=== PATIENT | female | born 1985 | race African-American/Black ===

== ENCOUNTER 2016-07-01 12:35 | Emergency (ER) | payer OTHER ==
[~2016-07-01] VITALS: Ht 165.1 cm; Wt 63.5 kg
[~2016-07-01 12:35] MED LIST: CYCLOBENZAPRINE10 MG ORAL; FERROUS SULFAT325 MG ORAL; IBUPROFEN400 MG ORAL; NORCO 5-325 TA1 EACH ORAL; PERIDEX 0.12% O16 OZ ORAL
--- NOTE | 2016-07-01 13:09 | Emergency Room Report ---
History of Present Illness General Chief Complaint: Back Pain-No Injury Source: Patient Present Illness HPI The pt is a 31 yo F with a hx of scoliosis presenting with L sided back pain which began 2 days prior. The patient denies any known reason for the pain. Pain is described as an 8/10 sharp intermittent sensation to the L lateral abdomen and does not radiate. No known provoking factors. Pt denies N, V, F, dysuria, hematuria, Allergies: Coded Allergies: KETOROLAC (Verified Allergy, Unknown, 09/14/15) Patient History Past Medical History: see triage record Pertinent Family History: none Last Menstrual Period: 4 weeks ago Now: No Reviewed Nursing Documentation: PMH: Agreed, PSxH: Agreed Nursing Documentation-PMH Past Medical History: No History, Except For Hx Hypertension: No - scoliosis Review of Systems All Other Systems: negative except mentioned in HPI Physical Exam Vital Signs Date Time Temp Pulse Resp B/P Pulse Ox O2 Delivery O2 Flow Rate FiO2 07/01/16 12:49 98.2 90 14 102/65 99 Sp02 EP Interpretation: reviewed, normal General Appearance: no apparent distress, alert, GCS 15, non-toxic Head: normocephalic, atraumatic Eyes: bilateral eye PERRL, bilateral eye normal inspection ENT: hearing grossly normal, normal pharynx, no angioedema, normal voice Respiratory: chest non-tender, lungs clear, normal breath sounds, speaking full sentences Cardiovascular #1: regular rate, rhythm, no edema Gastrointestinal: normal bowel sounds, soft, non-distended, no guarding, no rebound, tenderness - L lateral torso Rectal: deferred Genitourinary: normal inspection, CVA tenderness (L) Musculoskeletal: back normal, gait/station normal, normal range of motion, tender - TTP over L lateral torso Neurologic: alert, oriented x3, responsive, motor strength/tone normal, sensory intact, speech normal Psychiatric: judgement/insight normal, memory normal, mood/affect normal, no suicidal/homicidal ideation Skin: normal color, no rash, warm/dry, well hydrated Lymphatic: no adenopathy Medical Decision Making PA Attestation Dr. Farah is my supervising physician. Patient management was discussed with my supervising physician Diagnostic Impression: Primary Impression: Muscle strain Additional Impression: Iron deficiency anemia ER Course The patient is a 31-year-old female presenting with left-sided sharp, intermittent abdominal and back pain Differential diagnoses considered include but not limited to muscle strain, renal lithiasis, UTI, pyelonephritis PE: Vitals WNL. NAD. Abdomen: Normal appearance. Non distended. No ecchymosis. Normal BS. No McBurney point tenderness. No guarding. + LUQ/L lateral torso TTP. + L sided CVA tenderness Labs: CBC shows microcytic anemia. The patient has a Hx of Fe deficiency anemia and does not take medications for it. No leukocytosis CMP unremarkable. UA unremarkable. Neg preg Abd US: unremarkable. The patient will be treated for muscular strain with robaxin and tylenol. Pt will also be treated for iron deficiency anemia. ER precautions given. Laboratory Tests Test 07/01/16 13:20 White Blood Count 4.6 K/UL (4.8-10.8) L Red Blood Count 4.16 M/UL (4.20-5.40) L Hemoglobin 9.0 G/DL (12.0-16.0) L Hematocrit 29.8 % (37.0-47.0) L Mean Corpuscular Volume 72 FL (80-99) L Mean Corpuscular Hemoglobin 21.6 PG (27.0-31.0) L Mean Corpuscular Hemoglobin Concent 30.1 G/DL (32.0-36.0) L Red Cell Distribution Width 15.3 % (11.6-14.8) H Platelet Count 309 K/UL (150-450) Mean Platelet Volume 5.1 FL (6.5-10.1) L Neutrophils (%) (Auto) 50.7 % (45.0-75.0) Lymphocytes (%) (Auto) 32.3 % (20.0-45.0) Monocytes (%) (Auto) 6.9 % (1.0-10.0) Eosinophils (%) (Auto) 9.2 % (0.0-3.0) H Basophils (%) (Auto) 0.9 % (0.0-2.0) Urine Color Yellow Urine Appearance Clear Urine pH 6 (4.5-8.0) Urine Specific [place] 1.020 (1.005-1.035) Urine Protein 1+ (NEGATIVE) H Urine Glucose (UA) Negative (NEGATIVE) Urine Ketones Negative (NEGATIVE) Urine Occult Blood 2+ (NEGATIVE) H Urine Nitrite Negative (NEGATIVE) Urine Bilirubin Negative (NEGATIVE) Urine Urobilinogen Normal MG/DL (0.0-1.0) Urine Leukocyte Esterase Negative (NEGATIVE) Urine RBC 2-4 /HPF (0 - 2) H Urine WBC 0-2 /HPF (0 - 2) Urine Squamous Epithelial Cells Few /LPF (NONE/OCC) Urine Bacteria Few /HPF (NONE) Urine Mucus Moderate /LPF (NONE/OCC) H Urine HCG, Qualitative Negative Sodium Level 138 mEQ/L (135-145) Potassium Level 3.5 mEQ/L (3.4-4.9) Chloride Level 99 mEQ/L (98-107) Carbon Dioxide Level 24 mEQ/L (20-30) Anion Gap 15 (5-15) Blood Urea Nitrogen 10 mg/dL (7-23) Creatinine 0.6 mg/dL (0.5-0.9) Estimate Glomerular Filtration Rate > 60 mL/min (>60) Glucose Level 76 mg/dL (74-106) Calcium Level 8.7 mg/dL (8.6-10.2) Total Bilirubin 0.3 mg/dL (0.0-1.2) Aspartate Amino Transferase (AST) 16 U/L (5-40) Alanine Aminotransferase (ALT) 9 U/L (3-33) Alkaline Phosphatase 42 U/L (35-104) Total Protein 7.1 g/dL (6.6-8.7) Albumin 4.2 g/dL (3.5-5.2) Globulin 2.9 g/dL Albumin/Globulin Ratio 1.4 (1.0-2.7) Lab Results Impression CBC shows microcytic anemia. No leukocytosis CMP unremarkable. UA unremarkable. Neg preg CT/MRI/US Diagnostic Results CT/MRI/US Diagnostic Results : Imaging Test Ordered: Abd US Impression Unremarkable Last Vital Signs Date Time Temp Pulse Resp B/P Pulse Ox O2 Delivery O2 Flow Rate FiO2 07/01/16 12:49 98.2 90 14 102/65 99 Status: improved Disposition: HOME, SELF-CARE Condition: Improved Scripts Docusate Sodium* (COLACE*) 100 Mg Capsule 100 MG ORAL TWICE A DAY, #30 CAP Prov: TERZIAN,DARWIN P.A. 07/01/16 Ferrous Sulfate (FEROSUL) 325 Mg Tablet 325 MG PO DAILY, #30 TAB Prov: TERZIAN,DARWIN P.ASusan 07/01/16 Loratadine/Pseudoephedrine (CLARITIN-D 24 HOUR TABLET) 1 Each Tab.er.24h 1 TAB PO DAILY, #14 TAB Prov: DARWIN BOYCE P.A. 07/01/16 Methocarbamol* (ROBAXIN-750*) 750 Mg Tablet 750 MG PO TID, #21 TAB 0 Refills Prov: DARWIN BOYCE P.A. 07/01/16 Acetaminophen* (TYLENOL EXTRA STRENGTH*) 500 Mg Tablet 500 MG ORAL Q8H Y for Prn Headache/Temp > 101, #30 TAB 0 Refills Prov: DARWIN BOYCE P.A. 07/01/16 DARWIN BOYCE Jul 01, 2016 13:09
[2016-07-01 13:45] VITALS: BP 102/65
[2016-07-01 13:47] LABS: BASOPHILS % (AUTO) 0.9 % (0.0-2.0); EOSINOPHILS % (AUTO) 9.2 % (0.0-3.0); LYMPHOCYTES % (AUTO) 32.3 % (20.0-45.0); MEAN CORPUSCULAR HEMOGLOBIN 21.6 PG (27.0-31.0); MEAN CORPUSCULAR HGB CONC 30.1 G/DL (32.0-36.0); MEAN CORPUSCULAR VOLUME 72 FL (80-99); MEAN PLATELET VOLUME 5.1 FL (6.5-10.1); MONOCYTES % (AUTO) 6.9 % (1.0-10.0); NEUTROPHILS % (AUTO) 50.7 % (45.0-75.0); PLATELET COUNT 309 K/UL (150-450); RED BLOOD COUNT 4.16 M/UL (4.20-5.40); RED CELL DISTRIBUTION WIDTH 15.3 % (11.6-14.8); WHITE BLOOD COUNT 4.6 K/UL (4.8-10.8)
[2016-07-01 13:49] LABS: APPEARANCE,URINE CLEAR; KETONES,URINE NEGATIVE (NEGATIVE); LEUKOCYTE ESTERASE ,URINE NEGATIVE (NEGATIVE); NITRITE,URINE NEGATIVE (NEGATIVE); PH,URINE 6 (4.5-8.0); PROTEIN,URINE 1+ (NEGATIVE); UROBILINOGEN,URINE NORMAL MG/DL (0.0-1.0)
[2016-07-01 13:59] LABS: BACTERIA,URINE FEW /HPF; SQUAMOUS EPITHELIAL CELL,UR FEW /LPF (NONE/OCC); WBC,URINE 0-2 /HPF (0 - 2)
[2016-07-01 14:00] LABS: MUCUS,URINE MODERATE /LPF (NONE/OCC)
[2016-07-01 14:05] LABS: ALANINE AMINOTRANSFERASE 9 U/L (3-33); ALBUMIN/GLOBULIN RATIO 1.4 (1.0-2.7); ANION GAP 15 (5-15); ASPARTATE AMINO TRANSFERASE 16 U/L (5-40); CALCIUM 8.7 mg/dL (8.6-10.2); CARBON DIOXIDE 24 mEQ/L (20-30); CHLORIDE 99 mEQ/L (98-107); CREATININE 0.6 mg/dL (0.5-0.9); GLOMERULAR FILTRATION RATE > 60 mL/min (>60); HEMOLYSIS 1; POTASSIUM 3.5 mEQ/L (3.4-4.9); SODIUM 138 mEQ/L (135-145); TOTAL PROTEIN 7.1 g/dL (6.6-8.7)
[2016-07-01] MEDS ORDERED: COLACE100 MG ORAL (15:42)
[2016-07-01] MEDS ORDERED: FEROSUL325 M1 PO (15:42)
[2016-07-01] MEDS ORDERED: CLARITIN-D 241 EACH PO (15:42)
[2016-07-01] MEDS ORDERED: TYLENOL EXTRA500 MG ORAL (15:42)
[2016-07-01] MEDS ORDERED: ROBAXIN-750750 MG PO (15:42)
[2016-07-01 15:50] VITALS: BP 108/67
[2016-07-01 15:51] VITALS: BP 102/65
--- NOTE | 2016-07-01 16:27 | Diagnostic Imaging Report ---
Indication: Upper quadrant pain x10 days Technique: Stephens-scale and duplex images of the upper abdomen were obtained Comparison: None Findings: . Gallbladder is nondistended, otherwise unremarkable, without stones, wall thickening, nor pericholecystic fluid. Sonographic Monaco's 10.1 sign is negative. Common bile duct measures 4 mm in diameter. No intrahepatic biliary ductal dilatation. Liver demonstrates normal echogenicity, no focal abnormality. Portal vein and hepatic veins are patent.. Pancreas is unremarkable. Spleen is unremarkable. Left kidney measures 10.6 cm in length. Right kidney measures cm length. Both kidneys demonstrate normal echogenicity. There is no hydronephrosis. No focal abnormality. . Non-aneurysmal abdominal aorta. Impression: Negative
== END 2016-07-01 15:51 | disposition home or self-care (01) ==
LOC: EMR 13:15
DX: S39.012A Strain of muscle, fascia and tendon of lower back, initial encounter (principal); D50.9 Iron deficiency anemia, unspecified; M41.9 Scoliosis, unspecified; X58.XXXA Exposure to other specified factors, initial encounter; Y93.9 Activity, unspecified; Y92.9 Unspecified place or not applicable
CPT/HCPCS: 36415; 76700; 80053; 81003; 81025; 85025; 99284

== ENCOUNTER 2016-07-14 14:58 | Emergency (ER) | payer OTHER ==
[~2016-07-14] VITALS: Ht 165.1 cm; Wt 65.8 kg
[~2016-07-14 14:58] MED LIST changes: +CLARITIN-D 241 EACH PO; +COLACE100 MG ORAL; +FEROSUL325 M1 PO; +ROBAXIN-750750 MG PO; +TYLENOL EXTRA500 MG ORAL
[2016-07-14] MEDS ORDERED: Ipratropium 0.02% Inh Soln 2.5ml UD HHN ONE (15:15)
[2016-07-14] MEDS ORDERED: Albuterol ud Inhalation HHN ONE (15:15)
[2016-07-14 15:30] VITALS: BP 104/63
[2016-07-14] MEDS ORDERED: TYLENOL EXTRA500 MG ORAL (17:02)
[2016-07-14 17:06] VITALS: BP 104/63
--- NOTE | 2016-07-14 21:41 | Emergency Room Report ---
History of Present Illness General Chief Complaint: General Complaint Source: Patient Present Illness HPI The patient is a 31-year-old female presenting with chest pain which began last night. The patient states that she was sleeping and awoke with sharp mid chest pain. Pain described as a 6/10 sharp sensation it does not radiate. Patient states the pain is worse with certain movements such as pushing on forward. The admits to mild shortness of breath. The patient does admit to participating in a new exercise routine over the past few days which includes a lot of upper body work. The patient denies any familial cardiac history. The patient denies any injury to the area, OCP use, recent travel. Patient denies any other symptoms including nausea, vomiting, fever, chills, cough, headache, numbness or tingling of extremities, swelling of arms or legs. Allergies: Coded Allergies: KETOROLAC (Verified Allergy, Unknown, 09/14/15) Patient History Past Medical History: see triage record Pertinent Family History: none Last Menstrual Period: 07/08/2016 Reviewed Nursing Documentation: PMH: Agreed, PSxH: Agreed Nursing Documentation-PMH Past Medical History: No History, Except For Hx Cardiac Problems: Yes - heart murmur Hx Hypertension: No - scoliosis Review of Systems All Other Systems: negative except mentioned in HPI Physical Exam Vital Signs Date Time Temp Pulse Resp B/P Pulse Ox O2 Delivery O2 Flow Rate FiO2 07/14/16 15:00 98.1 87 14 104/63 100 Room Air Sp02 EP Interpretation: reviewed, normal General Appearance: no apparent distress, alert, GCS 15, non-toxic Head: normocephalic, atraumatic Eyes: bilateral eye PERRL, bilateral eye normal inspection ENT: hearing grossly normal, normal pharynx, no angioedema, normal voice, uvula midline Neck: full range of motion, supple/symm/no masses Respiratory: lungs clear, normal breath sounds, no respiratory distress, no accessory muscle use, no wheezing, speaking full sentences, other - TTP over mid sternum Cardiovascular #1: regular rate, rhythm, no edema, no JVD, no murmur, no rub Cardiovascular #2: 2+ carotid (R), 2+ carotid (L), 2+ radial (R), 2+ radial (L) , 2+ dorsalis pedis (R), 2+ dorsalis pedis (L) Gastrointestinal: normal bowel sounds, non tender, soft, non-distended, no guarding, no rebound Genitourinary: normal inspection, no CVA tenderness Musculoskeletal: back normal, gait/station normal, normal range of motion, non- tender Neurologic: alert, oriented x3, responsive, motor strength/tone normal, sensory intact, normal gait, speech normal Psychiatric: judgement/insight normal, memory normal, mood/affect normal, no suicidal/homicidal ideation Skin: normal color, no rash, warm/dry, well hydrated Lymphatic: no adenopathy Medical Decision Making PA Attestation Dr. Patton is my supervising physician. Patient management was discussed with my supervising physician Diagnostic Impression: Primary Impression: Muscle strain ER Course The patient is a 31-year-old female presenting with chest pain which began last night Differential diagnosis include but not limited to ACS, asthma, PE,CHF, pneumonia , gastritis, muscle strain, pericarditis PE: Vitals WNL. NAD. RRR. No MRG. There is TTP over mid sternum. Lungs CTA bilat. Abd is soft and non tender. The patient is given a breathing treatment with no relief of symptoms. Chest x-ray unremarkable EKG unremarkable for acute changes. Reviewed with Dr. Patton. The patient is allergic to NSAIDs and will be discharged home with a prescription for Tylenol is advised to rest. ER precautions are given and the patient will follow up with primary care physician. Laboratory Tests Test 07/14/16 15:30 Urine HCG, Qualitative Negative Lab Results Impression preg:neg EKG Diagnostic Results EP Interpretation: Atrial enlargement Rate: normal Rhythm: NSR ST Segments: no acute changes ASA given to the pt in ED: No PA Scribe Text EKG was reviewed and read with my supervising physician. No acute ST segment changes are seen. Normal rate and rhythm. Chest X-Ray Diagnostic Results EP Interpretation: Yes Findings: no consolidation, no effusion, no pneumothorax, no acute cardiopulmonary disease Number of Views: 1 PA Scribe Text I am acting as scribe for my supervising physician. My supervising physician's interpretation of the chest xrays are there is no consolidation, no effusion, no acute cardiopulmonary disease, no pneumothorax Last Vital Signs Date Time Temp Pulse Resp B/P Pulse Ox O2 Delivery O2 Flow Rate FiO2 07/14/16 17:06 98.1 18 104/63 100 Room Air 07/14/16 15:50 90 Status: improved Disposition: HOME, SELF-CARE Condition: Improved Scripts Acetaminophen* (TYLENOL EXTRA STRENGTH*) 500 Mg Tablet 500 MG ORAL Q8H Y for Prn Headache/Temp > 101, #30 TAB 0 Refills Prov: DARWIN BOYCE 07/14/16 Referrals: NON PHYSICIAN (PCP) Patient Instructions: Chest Wall Pain Additional Instructions: I discussed my findings with the patient. All questions and concerns have been answered. Treatment and medication compliance have been addressed. I advised the patient that they need to follow up with PMD in 3-5 days. Return to ED if symptoms worsen, new symptoms arise, or if needed for any reason. Patient verbalized understanding of discharge instructions. DARWIN BOYCE Jul 14, 2016 21:41
--- NOTE | 2016-07-15 10:00 | Diagnostic Imaging Report ---
Indication: SOB Technique: One view of the chest Comparison: none Findings: Lungs and pleural spaces are clear. Heart size is normal. Is mild thoracic scoliotic deformity Impression: No acute process
== END 2016-07-14 17:11 | disposition home or self-care (01) ==
LOC: EMR 15:55
DX: T14.8 Other injury of unspecified body region (principal); M41.9 Scoliosis, unspecified; Z88.8 Allergy status to other drugs, medicaments and biological substances; X58.XXXA Exposure to other specified factors, initial encounter; Y92.9 Unspecified place or not applicable; Y99.8 Other external cause status
CPT/HCPCS: 71010; 81025; 94644; 99283

== ENCOUNTER 2016-07-22 01:24 | Emergency (ER) | payer OTHER ==
[~2016-07-22] VITALS: Ht 165.1 cm; Wt 68.0 kg
[2016-07-22 01:56] VITALS: BP 109/71
[2016-07-22 02:00] VITALS: BP 109/71
--- NOTE | 2016-07-22 05:02 | Emergency Room Report ---
History of Present Illness General Chief Complaint: Chest Pain Source: Patient Present Illness HPI Patient presents with complaints of midsternal chest pain Reports ongoing for the past several days Denies any shortness of breath Denies any cough Denies any vomiting or diarrhea Patient is not necessarily associate the pain with movement or touch there is a pressure component as well Denies any recent travel Allergies: Coded Allergies: KETOROLAC (Verified Allergy, Unknown, 09/14/15) Patient History Past Medical History: see triage record Pertinent Family History: none Last Menstrual Period: Jun Reviewed Nursing Documentation: PMH: Agreed, PSxH: Agreed Nursing Documentation-PMH Hx Cardiac Problems: Yes - heart murmur Hx Hypertension: No - scoliosis Review of Systems All Other Systems: negative except mentioned in HPI Physical Exam Vital Signs Date Time Temp Pulse Resp B/P Pulse Ox O2 Delivery O2 Flow Rate FiO2 07/22/16 01:36 98.2 16 109/71 100 Room Air 07/22/16 01:54 72 Sp02 EP Interpretation: reviewed, normal General Appearance: well appearing, no apparent distress Head: normocephalic, atraumatic Eyes: bilateral eye EOMI, bilateral eye PERRL ENT: normal pharynx, no angioedema Neck: full range of motion, supple Respiratory: chest non-tender, lungs clear Cardiovascular #1: regular rate, rhythm, no edema, no gallop Musculoskeletal: normal inspection Neurologic: alert, oriented x3, responsive Skin: normal color, no rash Lymphatic: no adenopathy Medical Decision Making Diagnostic Impression: Primary Impression: Chest pain ER Course Patient multiple differentials considered She has had recent presentation with fairly extensive workup including troponin levels and chest x-ray On today's visit patient had EKG obtained which was normal I do not feel the patient's presentation is in line with cardiac pathology Patient appears to have filled multiple Jal medications, over the past 5 months. At this time given the"safe pain medicine prescribing" campaign, I recommended close outpatient followup for further pain control, EKG Diagnostic Results Rate: normal Rhythm: NSR ST Segments: no acute changes Rhythm Strip Diag. Results EP Interpretation: yes Rate: 77 Rhythm: NSR, no PVC's, no ectopy Last Vital Signs Date Time Temp Pulse Resp B/P Pulse Ox O2 Delivery O2 Flow Rate FiO2 07/22/16 02:00 98.2 72 16 109/71 100 Room Air Status: unchanged Disposition: HOME, SELF-CARE Condition: Stable Referrals: PORSHA HUANG,REFERRING (PCP) Patient Instructions: Nonspecific Chest Pain Additional Instructions: Please note that secondary to the "safe pain medicine prescribing" can pain in the [place], they were being asked to followup with her primary physician for further pain medication. At this time the workup in the emergency room does not reveal any cardiac pathology were safe to followup in the next 2-3 days MARIA ELENA STAUFFER D.O. Jul 22, 2016 05:02
--- NOTE | 2016-07-23 14:02 | Cardiology Report ---
APPROVED REPORT EKG Measurement Heart [id number] Normal sinus rhythm Normal ECG
== END 2016-07-22 02:00 | disposition home or self-care (01) ==
LOC: EMR 01:45
DX: R07.89 Other chest pain (principal); M41.9 Scoliosis, unspecified; Z88.8 Allergy status to other drugs, medicaments and biological substances
CPT/HCPCS: 93005; 99283

== ENCOUNTER 2016-09-09 11:11 | Emergency (ER) | payer OTHER ==
[~2016-09-09] VITALS: Ht 162.6 cm; Wt 68.0 kg
[2016-09-09 11:30] VITALS: BP 111/52
[2016-09-09 11:51] LABS: BASOPHILS % (AUTO) 0.9 % (0.0-2.0); EOSINOPHILS % (AUTO) 5.2 % (0.0-3.0); LYMPHOCYTES % (AUTO) 25.3 % (20.0-45.0); MEAN CORPUSCULAR HEMOGLOBIN 20.7 PG (27.0-31.0); MEAN CORPUSCULAR HGB CONC 28.7 G/DL (32.0-36.0); MEAN CORPUSCULAR VOLUME 72 FL (80-99); MEAN PLATELET VOLUME 5.1 FL (6.5-10.1); MONOCYTES % (AUTO) 7.4 % (1.0-10.0); NEUTROPHILS % (AUTO) 61.3 % (45.0-75.0); PLATELET COUNT 333 K/UL (150-450); RED BLOOD COUNT 4.31 M/UL (4.20-5.40); RED CELL DISTRIBUTION WIDTH 16.3 % (11.6-14.8); WHITE BLOOD COUNT 4.4 K/UL (4.8-10.8)
[2016-09-09 12:02] LABS: ALANINE AMINOTRANSFERASE 10 U/L (3-33); ALBUMIN/GLOBULIN RATIO 1.5 (1.0-2.7); ANION GAP 14 (5-15); ASPARTATE AMINO TRANSFERASE 16 U/L (5-40); CALCIUM 9.1 mg/dL (8.6-10.2); CARBON DIOXIDE 24 mEQ/L (20-30); CHLORIDE 97 mEQ/L (98-107); CREATININE 0.6 mg/dL (0.5-0.9); GLOMERULAR FILTRATION RATE > 60 mL/min (>60); HEMOLYSIS 6; POTASSIUM 3.4 mEQ/L (3.4-4.9); SODIUM 135 mEQ/L (135-145); TROPONIN I < 0.30 ng/mL (<=0.30)
[2016-09-09 12:13] LABS: CKMB < 1.5 ng/mL (< 3.8)
--- NOTE | 2016-09-09 13:30 | Diagnostic Imaging Report ---
Indication: Chest pain Technique: Single AP view of the chest. Findings: Comparison: 07/14/16 The thoracic spine demonstrates mild S-shaped scoliosis. The extra pulmonary soft tissues, cardiomediastinal silhouette, pulmonary vasculature and parenchyma, and pleural surfaces remain unremarkable. IMPRESSION: Scoliosis Otherwise negative AP chest. No change from prior exam
--- NOTE | 2016-09-09 13:45 | Diagnostic Imaging Report ---
Indications: Shortness of breath Technique: Continuous helical CT imaging of the thorax was performed with automatic exposure control, following bolus intravenous administration of nonionic iodine contrast, on a Siemens sensation [address] scanner. Axial images reconstructed at 3 mm slice thickness and 1.5 mm interval. Coronal and sagittal images were reconstructed at 3 mm slice thickness. Coronal and sagittal two-dimensional maximum intensity projection and three-dimensional volume-rendered images were reconstructed on a stand alone workstation. CTDI volume(s): 13x4, 22 mGy Total DLP: 770 mGy-cm Findings: Comparison: None The main pulmonary artery, right and left pulmonary arteries, and pulmonary artery branches to the level of third order branching are patent and well-opacified. No intraluminal filling defects are demonstrated. Thoracic aorta and great vessels are patent and well-opacified with mild scattered calcified plaquing, normal in caliber and configuration. No evidence of aneurysm, dissection, or leak. Lungs normally, symmetrically inflated and clear. No pleural abnormality. Heart normal size. No pericardial abnormality. No mediastinal or hilar enlarged lymph nodes, other abnormal masses or fluid collections. Chest wall soft tissues nonfocal. Imaged upper abdominal anatomy unremarkable. No focal skeletal abnormality identified. IMPRESSION: No evidence of pulmonary embolism or other significant acute thoracic pathology
[2016-09-09] MEDS ORDERED: TYLENOL EXTRA500 MG ORAL (14:14)
[2016-09-09] MEDS ORDERED: CYCLOBENZAPRINE10 MG ORAL (14:14)
--- NOTE | 2016-09-09 14:35 | Emergency Room Report ---
History of Present Illness General Chief Complaint: Chest Pain Source: Patient Present Illness HPI 31-year-old female presents ED for evaluation of chest pain. Patient states having chest pain on and off for several months now. Pain is midsternal, 4/10, nonradiating, worse with bending and twisting. Denies any chest pain at this time. Patient states symptoms started a few months ago after lifting at the gym. Denies shortness of breath. Patient states she's been here a few times since for evaluation in her workups have been negative. Denies smoking or drug use. No other aggravating relieving factors. Denies any other associated symptoms Allergies: Coded Allergies: KETOROLAC (Verified Allergy, Unknown, 09/14/15) Patient History Past Medical History: none Past Surgical History: none Pertinent Family History: none Social History: Denies: alcohol use, drug use, smoking Now: No Immunizations: UTD Reviewed Nursing Documentation: PMH: Agreed, PSxH: Agreed Nursing Documentation-PMH Hx Cardiac Problems: Yes - heart murmur Hx Hypertension: No - scoliosis Review of Systems All Other Systems: negative except mentioned in HPI Physical Exam Vital Signs Date Time Temp Pulse Resp B/P Pulse Ox O2 Delivery O2 Flow Rate FiO2 09/09/16 11:14 97.3 90 20 102/67 100 Room Air Sp02 EP Interpretation: reviewed, normal General Appearance: no apparent distress, alert, GCS 15, non-toxic Head: normocephalic, atraumatic Eyes: bilateral eye PERRL, bilateral eye normal inspection ENT: hearing grossly normal, normal pharynx, no angioedema, normal voice Neck: full range of motion, supple/symm/no masses Respiratory: chest non-tender, lungs clear, normal breath sounds, speaking full sentences Cardiovascular #1: regular rate, rhythm, no edema Cardiovascular #2: 2+ carotid (R), 2+ carotid (L), 2+ radial (R), 2+ radial (L) , 2+ dorsalis pedis (R), 2+ dorsalis pedis (L) Gastrointestinal: normal bowel sounds, non tender, soft, non-distended, no guarding, no rebound Rectal: deferred Genitourinary: normal inspection, no CVA tenderness Musculoskeletal: back normal, gait/station normal, normal range of motion, non- tender Neurologic: alert, oriented x3, responsive, motor strength/tone normal, sensory intact, speech normal Psychiatric: judgement/insight normal, memory normal, mood/affect normal, no suicidal/homicidal ideation Reflexes: 3+ bicep (R), 3+ bicep (L), 3+ tricep (R), 3+ tricep (L), 3+ knee (R) , 3+ knee (L) Skin: normal color, no rash, warm/dry, well hydrated Lymphatic: no adenopathy Medical Decision Making Diagnostic Impression: Primary Impression: Chest wall pain ER Course Hospital Course 31-year-old female presents ED complaining of reproducible chest wall pain Differential diagnoses include: Rib fracture, CT/unstable angina, contusion, muscle strain Clinical course Patient placed on stretcher. After initial history and physical I ordered labs , EKG, chest x-ray. labs reviewed- all electrolytes normal, troponins negative, no leukocytosis, hemoglobin/hematocrit stable, ddimer 818 EKG - NSR, no acute changes Chest x-ray-no cardiomegaly, no rib fracture, no pneumothorax, no acute process Given multiple visits for similar pain with elevated d-dimer we must rule out PE CTA chest shows no evidence of PE I agree with initial assessment on previous visits a muscular chest pain. We' ll treat with anti-inflammatories and muscle relaxers I. I feel this is a highly complex case requiring extensive working including EKG/Rhythm strip, Xray/CT/US, Blood/urine lab work, repeat exams while in ED, and administration of strong opiates/narcotics for pain control, admission to hospital or close patient follow up. Diagnosis - chest wall pain Stable and discharged to home with prescription for Tylenol, Flexeril. Instructed to followup with PMD. Return to ED if symptoms recur or worsen my chest wall pain shortness Labs Test 09/09/16 11:30 White Blood Count 4.4 K/UL (4.8-10.8) Red Blood Count 4.31 M/UL (4.20-5.40) Hemoglobin 8.9 G/DL (12.0-16.0) Hematocrit 31.1 % (37.0-47.0) Mean Corpuscular Volume 72 FL (80-99) Mean Corpuscular Hemoglobin 20.7 PG (27.0-31.0) Mean Corpuscular Hemoglobin Concent 28.7 G/DL (32.0-36.0) Red Cell Distribution Width 16.3 % (11.6-14.8) Platelet Count 333 K/UL (150-450) Mean Platelet Volume 5.1 FL (6.5-10.1) Neutrophils (%) (Auto) 61.3 % (45.0-75.0) Lymphocytes (%) (Auto) 25.3 % (20.0-45.0) Monocytes (%) (Auto) 7.4 % (1.0-10.0) Eosinophils (%) (Auto) 5.2 % (0.0-3.0) Basophils (%) (Auto) 0.9 % (0.0-2.0) D-Dimer 818 ng/mL (<500) Urine HCG, Qualitative Negative Sodium Level 135 mEQ/L (135-145) Potassium Level 3.4 mEQ/L (3.4-4.9) Chloride Level 97 mEQ/L (98-107) Carbon Dioxide Level 24 mEQ/L (20-30) Anion Gap 14 (5-15) Blood Urea Nitrogen 11 mg/dL (7-23) Creatinine 0.6 mg/dL (0.5-0.9) Estimat Glomerular Filtration Rate > 60 mL/min (>60) Glucose Level 116 mg/dL (74-106) Calcium Level 9.1 mg/dL (8.6-10.2) Total Bilirubin 0.3 mg/dL (0.0-1.2) Aspartate Amino Transf (AST/SGOT) 16 U/L (5-40) Alanine Aminotransferase (ALT/SGPT) 10 U/L (3-33) Alkaline Phosphatase 43 U/L (35-104) Total Creatine Kinase 84 U/L (26-140) Creatine Kinase MB < 1.5 ng/mL (< 3.8) Creatine Kinase MB Relative Index 1.7 Troponin I < 0.30 ng/mL (<=0.30) Pro-B-Type Natriuretic Peptide 30 pg/mL (0-125) Total Protein 7.0 g/dL (6.6-8.7) Albumin 4.2 g/dL (3.5-5.2) Globulin 2.8 g/dL Albumin/Globulin Ratio 1.5 (1.0-2.7) Urine Opiates Screen Negative (NEGATIVE) Urine Barbiturates Screen Negative (NEGATIVE) Phencyclidine (PCP) Screen Negative (NEGATIVE) Urine Amphetamines Screen Negative (NEGATIVE) Urine Benzodiazepines Screen Negative (NEGATIVE) Urine Cocaine Screen Negative (NEGATIVE) Urine Marijuana (THC) Screen Negative (NEGATIVE) EKG Diagnostic Results Rate: normal Rhythm: NSR ST Segments: no acute changes ASA given to the pt in ED: No Rhythm Strip Diag. Results EP Interpretation: yes Rhythm: NSR, no PVC's, no ectopy Chest X-Ray Diagnostic Results EP Interpretation: No Findings: no consolidation, no effusion, no pneumothorax, no acute cardiopulmonary disease Number of Views: 1 CT/MRI/US Diagnostic Results CT/MRI/US Diagnostic Results : Imaging Test Ordered: CTA Chest Impression no evidence of PE Last Vital Signs Date Time Temp Pulse Resp B/P Pulse Ox O2 Delivery O2 Flow Rate FiO2 09/09/16 11:30 84 16 111/52 100 Room Air 09/09/16 11:14 97.3 Status: improved Disposition: HOME, SELF-CARE Condition: Stable Scripts Cyclobenzaprine Hcl* (FLEXERIL*) 10 Mg Tablet 10 MG ORAL TID Y for Muscle Spasm, #20 TAB Prov: JITENDRA BISWAS M.D. 09/09/16 Acetaminophen* (TYLENOL EXTRA STRENGTH*) 500 Mg Tablet 500 MG ORAL Q8H Y for Prn Headache/Temp > 101, #30 TAB 0 Refills Prov: JITENDRA BISWAS M.D. 09/09/16 Patient Instructions: Chest Wall Pain, [id number] JITENDRA BISWAS M.D. Sep 09, 2016 14:35
[2016-09-09 14:36] VITALS: BP 102/58
[2016-09-09 14:37] VITALS: BP 102/58
== END 2016-09-09 14:39 | disposition home or self-care (01) ==
LOC: EMR 11:46
DX: R07.89 Other chest pain (principal); M41.9 Scoliosis, unspecified
CPT/HCPCS: 36415; 71010; 71275; 80053; 80300; 81025; 82550; 82553; 83880; 84484; 85025; 85379; 93005; 99284; Q9967

== ENCOUNTER 2018-08-19 19:08 | Emergency (ER) | payer OTHER ==
[~2018-08-19] VITALS: Ht 165.1 cm; Wt 65.8 kg
[2018-08-19] MEDS ORDERED: NKM (19:20)
[2018-08-19 19:38] VITALS: BP 105/62
--- NOTE | 2018-08-19 19:38 | NUR ---
ED Nurse Note: patient ambulated to ED c/o back muscle spasm and sharp chest pain upon breathing since 0500 today. hx heart murmur
--- NOTE | 2018-08-19 19:50 | NUR ---
ED Nurse Note: CHEST XRAY COMPLETED
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
--- NOTE | 2018-08-19 20:05 | NUR ---
ED Nurse Note: URINE SENT TOLAB
[2018-08-19 20:20] LABS: APPEARANCE,URINE CLEAR; BILIRUBIN, URINE NEGATIVE (NEGATIVE); COLOR,URINE PALE YELLOW; GLUCOSE, URINE (UA) NEGATIVE (NEGATIVE); KETONES,URINE 1+ (NEGATIVE); LEUKOCYTE ESTERASE ,URINE 2+ (NEGATIVE); NITRITE,URINE NEGATIVE (NEGATIVE); PH,URINE 7 (4.5-8.0); PROTEIN,URINE 1+ (NEGATIVE); UROBILINOGEN,URINE 1 MG/DL (0.0-1.0)
--- NOTE | 2018-08-19 20:31 | Diagnostic Imaging Report ---
EXAM: XR Chest, 1 View CLINICAL HISTORY: CP TECHNIQUE: Frontal view of the chest. COMPARISON: 09/09/16 chest x-ray FINDINGS: Lungs: Unremarkable. No consolidation. Pleural space: Unremarkable. No pneumothorax. Heart: Unremarkable. No cardiomegaly. Mediastinum: Unremarkable. Bones/joints: Unremarkable. IMPRESSION: Normal chest x-ray.
[2018-08-19 21:15] VITALS: BP 94/49
[2018-08-19] MEDS ORDERED: NORCO 5-325 TA1 EACH ORAL (21:46)
[2018-08-19] MEDS ORDERED: ROBAXIN500 MG PO (21:46)
[2018-08-19] MEDS ORDERED: VISTARIL25 M1 PO (21:46)
[2018-08-19 21:56] VITALS: BP 97/50
--- NOTE | 2018-08-19 21:56 | NUR ---
ER DISCHARGE NOTE: Patient is cleared to be discharged per ERMD, pt is aox4, on room air, with stable vital signs. pt was given dc and prescription instructions, pt was able to verbalize understanding, pt id band removed . pt is able to ambulate with steady gait. pt took all belongings.
--- NOTE | 2018-08-21 12:43 | Cardiology Report ---
APPROVED REPORT EKG Measurement Heart [id number] Normal sinus rhythm Incomplete RBBB Possible Left atrial enlargement Nonspecific T wave abnormality Abnormal ECG
== END 2018-08-19 21:56 | disposition home or self-care (01) ==
LOC: EMR 20:00
DX: R07.89 Other chest pain (principal); M62.830 Muscle spasm of back
CPT/HCPCS: 71045; 81003; 81025; 87086; 93005; 99283

== ENCOUNTER 2019-02-26 11:18 | Emergency (ER) | payer OTHER ==
[~2019-02-26] VITALS: Ht 165.1 cm; Wt 68.0 kg
[~2019-02-26 11:18] MED LIST changes: +NKM; +ROBAXIN500 MG PO; +VISTARIL25 M1 PO
[2019-02-26] MEDS ORDERED: UNOBMED (11:28)
--- NOTE | 2019-02-26 12:22 | Emergency Room Report ---
History of Present Illness General Chief Complaint: Pain Source: Medical Record Present Illness HPI 33-year-old female with history of cervical disc disease here complaining of worsening neck pain x3 days. Denies any recent injury or fall. Also complains of generalized patient is in no apparent distress or Tylenol for relief. Denies chest pain, tingling and numbness. Patient is having physical therapy with patient has an upcoming appointment with primary care. Reports that she is allergic to ibuprofen. Allergies: Coded Allergies: KETOROLAC (Verified Allergy, Unknown, 09/14/15) Patient History Past Medical History: see triage record Past Surgical History: unable to obtain Pertinent Family History: none Last Menstrual Period: 02/04/19 Now: No Immunizations: UTD Reviewed Nursing Documentation: PMH: Agreed; PSxH: Agreed Nursing Documentation-PMH Past Medical History: No History, Except For Hx Cardiac Problems: Yes - heart murmur Hx Hypertension: No - scoliosis Hx Neurological Problems: No - scolisis Review of Systems All Other Systems: negative except mentioned in HPI Physical Exam Vital Signs Date Time Temp Pulse Resp B/P (MAP) Pulse Ox O2 Delivery O2 Flow Rate FiO2 02/26/19 11:22 98.2 89 18 117/68 (84) 100 Room Air Sp02 EP Interpretation: reviewed, normal General Appearance: no apparent distress, alert, GCS 15, non-toxic Head: normocephalic, atraumatic Eyes: bilateral eye normal inspection, bilateral eye PERRL ENT: hearing grossly normal, normal pharynx, no angioedema, normal voice Neck: full range of motion, supple, thyroid normal, no meningismus, no bony tend, no carotid bruits, supple/symm/no masses Respiratory: chest non-tender, lungs clear, normal breath sounds, no wheezing, speaking full sentences Cardiovascular #1: regular rate, rhythm, no edema, no murmur Cardiovascular #2: 2+ carotid (R), 2+ carotid (L) Gastrointestinal: normal bowel sounds, non tender, soft, non-distended, no guarding, no rebound Genitourinary: normal inspection, no CVA tenderness Musculoskeletal: back normal, gait/station normal, normal range of motion, non- tender Neurologic: alert, oriented x3, responsive, motor strength/tone normal, sensory intact, speech normal Psychiatric: judgement/insight normal, memory normal, mood/affect normal, no suicidal/homicidal ideation Skin: no rash Lymphatic: no adenopathy Medical Decision Making PA Attestation All my diagnosis and treatment plans were reviewed ad discussed with my supervising physician Dr. Edgar Diagnostic Impression: Primary Impression: Chronic neck pain Additional Impression: Ankle edema ER Course 33-year-old female with history of cervical disc disease here complaining of worsening neck pain x3 days. Denies any recent injury or fall. Also complains of generalized patient is in no apparent distress or Tylenol for relief. Denies chest pain, tingling and numbness. Patient is having physical therapy with patient has an upcoming appointment with primary care. Reports that she is allergic to ibuprofen. Ddx considered but are not limited to: ankle sprain, ankle strain, ankle fracture, ankle contusion, chronic neck pain, degenerative disc disease Vital signs: are WNL, pt. is afebrile H&PE are most consistent with: Chronic neck pain, ankle edema, no need for x- ray of ankle as patient has not injured herself and complains of edema in random places of her body intermittently. ORDERS: Tylenol, lidocaine patch, Flexeril ED INTERVENTIONS: None required at this time. DISCHARGE: At this time pt. is stable for d/c to home. Will provide printed patient care instructions, and any necessary prescriptions. Care plan and follow up instructions have been discussed with the patient prior to discharge. Due to having chronic pain no further imaging is needed patient to follow-up with also advised patient to have primary care check her for CRP and for generalized edema. At this time no further emergent action needed at the emergency room. Also patient is sitting comfortably and playing on her phone and speaking to me. Last Vital Signs Date Time Temp Pulse Resp B/P (MAP) Pulse Ox O2 Delivery O2 Flow Rate FiO2 02/26/19 11:22 98.2 89 18 117/68 (84) 100 Room Air Disposition: HOME, SELF-CARE Condition: Stable Scripts Lidocaine Patch* (Lidoderm Patch*) 1 Each Adh..patch 1 PATCH TOPIC DAILY, #7 PATCH 0 Refills Patch(es) may remain in place for up to 12 hours in any 24-hour period. Prov: Tamy Brandt 02/26/19 Acetaminophen* (ACETAMINOPHEN EXTRA STRENGTH*) 500 Mg Tablet 1000 MG ORAL Q6H, #30 TAB 0 Refills Prov: Tamy Brandt 02/26/19 Cyclobenzaprine Hcl* (FLEXERIL*) 10 Mg Tablet 10 MG ORAL BID, #10 TAB Prov: Tamy Brandt 02/26/19 Referrals: PORSHA HUANG,REFERRING (PCP) Patient Instructions: Cervical Strain and Sprain With Rehab-SportsMed, Edema, [id number] Additional Instructions: Follow with pain management and your specialist regarding chronic neck pain at this time no narcotics will be written as this is not a new injury and you have been having this chronic pain for many months. Also have your primary care provider test you for inflammation and fibromyalgia Tamy Brandt Feb 26, 2019 12:22
[2019-02-26] MEDS ORDERED: CYCLOBENZAPRINE10 MG ORAL (12:23)
[2019-02-26] MEDS ORDERED: ACETAMINOPHEN500 M3 ORAL (12:23)
[2019-02-26] MEDS ORDERED: LIDODERM700 M1 TOPIC (12:23)
--- NOTE | 2019-02-26 12:30 | NUR ---
ER DISCHARGE NOTE: Patient is cleared to be discharged per ERMD, pt is aox4, on room air, with stable vital signs. pt was given dc and prescription instructions, pt was able to verbalize understanding, pt is able to ambulate with steady gait. pt took all belongings.
[2019-02-26 12:31] VITALS: BP 117/68
[2019-02-26 12:33] VITALS: BP 117/68
== END 2019-02-26 12:30 | disposition home or self-care (01) ==
LOC: EMR 12:04
DX: G89.29 Other chronic pain (principal); M54.2 Cervicalgia; R60.0 Localized edema; M41.9 Scoliosis, unspecified; R01.1 Cardiac murmur, unspecified; Z88.8 Allergy status to other drugs, medicaments and biological substances
CPT/HCPCS: 99282